=== PATIENT | male | born 1995 | race Caucasian/White ===

== ENCOUNTER 2021-08-15 07:18 | Emergency (ER) | payer MEDICAID ==
[~2021-08-15] VITALS: Ht 175.3 cm; Wt 61.0 kg
[2021-08-15] MEDS ORDERED: ONDANSETRON HCL 4MG/2ML INJ IV ONE (08:15)
[2021-08-15] MEDS ORDERED: NALOXONE HCL 1 MG/ML 2ML VIAL IV ONE (08:15)
[2021-08-15] MEDS ORDERED: ONDANSETRON HCL 4MG/2ML INJ IM ONE (08:30)
[2021-08-15 11:33] VITALS: BP 102/58
== END 2021-08-15 11:35 | disposition home or self-care (01) ==
LOC: ER 07:33 → EDBD 07:33 → ER 11:35
DX: F14.129 Cocaine abuse with intoxication, unspecified (principal); T43.625A Adverse effect of amphetamines, initial encounter; R41.0 Disorientation, unspecified; Y92.9 Unspecified place or not applicable
CPT/HCPCS: 36415; 80320; 96372; 99283; J2405; Z7610; G0480

== ENCOUNTER 2021-09-30 15:50 | Emergency (ER) | payer MEDICAID ==
[~2021-09-30] VITALS: Ht 177.8 cm; Wt 60.0 kg
[2021-09-30 15:55] VITALS: BP 121/68
== END 2021-09-30 20:49 | disposition left against medical advice (07) ==
LOC: ER 15:50
DX: Z53.21 Procedure and treatment not carried out due to patient leaving prior to being seen by health care provider (principal)

== ENCOUNTER 2021-10-15 20:31 | Emergency (ER) | payer MEDICAID ==
[~2021-10-15] VITALS: Ht 172.7 cm; Wt 68.0 kg
[2021-10-15] MEDS ORDERED: VANCOMYCIN 1 G PREMIX 200 ML IV ONE (21:30)
[2021-10-15] MEDS ORDERED: KETOROLAC 30MG/ML VIAL IV STA (21:30)
[2021-10-15] MEDS ORDERED: PIPERACILLIN/TAZ 3.375G PREMIX 50 ML IV ONE (21:30)
[2021-10-15 22:22] LABS: BASOPHILS % 0.4 % (0.0-2.0); EOSINOPHILS % 2.1 % (0.0-5.0); HEMOGLOBIN. 13.4 g/dL (14.0-18.0); MEAN CORPUSCULAR HEMOGLOBIN 29.9 pg (28.0-32.0); MEAN CORPUSCULAR VOLUME 86.9 fL (80.0-94.0); MEAN PLATELET VOLUME 7.6 fl (7.4-10.4); MONOCYTES % 7.2 % (2.0-8.0); NEUTROPHILS % 63.3 % (40.0-76.0); PLATELET 263 x1000/uL (130-400); RED BLOOD CELL COUNT 4.49 mill/uL (4.7-6.1); RED CELL DISTRIBUTION WIDTH 13.6 % (11.6-14.6)
[2021-10-15 22:28] LABS: CHLORIDE 105 mEq/L (98-107)
[2021-10-15 22:30] VITALS: BP 131/72
[2021-10-15 22:32] LABS: ETHANOL BLOOD < 10 mg/dL
== END 2021-10-16 00:07 | disposition home or self-care (01) ==
LOC: ER 20:31
DX: S60.450A Superficial foreign body of right index finger, initial encounter (principal); F15.10 Other stimulant abuse, uncomplicated; W45.8XXA Other foreign body or object entering through skin, initial encounter; Y93.89 Activity, other specified; Y92.018 Other place in single-family (private) house as the place of occurrence of the external cause
CPT/HCPCS: 36415; 73130; 80053; 80320; 83605; 84145; 85025; 87040; 96365; 96368; 96375; 99284; J1885; J2543; G0480

== ENCOUNTER 2023-05-31 21:21 | Emergency (ER) | payer MEDICAID ==
[~2023-05-31] VITALS: Ht 172.7 cm; Wt 70.0 kg
[2023-05-31 21:36] VITALS: O2SAT 97
[2023-05-31] MEDS ORDERED: OLANZAPINE 10 MG/VIAL IM STA (21:40)
[2023-05-31] MEDS ORDERED: LORAZEPAM 2MG/ML CPJ IM STA (21:40)
[2023-05-31] MEDS ORDERED: SODIUM CHLORIDE 0.9% 1,000 ML IV ONE (21:45)
[2023-05-31] MEDS ORDERED: DIPHENHYDRAMINE 50MG/ML VIAL IM ONE (21:45)
[2023-05-31] MEDS ORDERED: FLUORESCEIN SODIUM 1MG/STRIP BOTHEYE ONE (22:30)
[2023-05-31] MEDS ORDERED: SULFACETAMIDE SODIUM 10% OPHTH DROPS 15ML BOTHEYE ONE (22:30)
[2023-05-31] MEDS ORDERED: TETRACAINE 0.5% OPHTH DROPS 4ML BOTHEYE ONE (22:30)
[2023-05-31] MEDS ORDERED: LORAZEPAM 2MG/ML CPJ IV ONE (22:30)
[2023-05-31 22:49] LABS: BASOPHILS % 0.2 % (0.0-2.0); EOSINOPHILS % 0.7 % (0.0-5.0); HEMOGLOBIN. 13.1 g/dL (14.0-18.0); LYMPHOCYTES % 9.1 % (20.0-50.0); MEAN CORPUSCULAR HEMOGLOBIN 29.1 pg (28.0-32.0); MEAN CORPUSCULAR VOLUME 86.8 fL (80.0-94.0); MEAN PLATELET VOLUME 7.3 fl (7.4-10.4); MONOCYTES % 6.2 % (2.0-8.0); NEUTROPHILS % 83.8 % (40.0-76.0); PLATELET 289 x1000/uL (130-400); RED CELL DISTRIBUTION WIDTH 13.7 % (11.6-14.6)
[2023-05-31 22:59] LABS: CHLORIDE 108 mEq/L (98-107); ETHANOL BLOOD < 10 mg/dL (-10)
[2023-05-31] MEDS ORDERED: SULF15DR26 EACHEYE (23:48)
[2023-06-01 06:45] VITALS: BP 117/81; PULSE 68; RESP 18; TEMP 98.1
== END 2023-06-01 10:11 | disposition home or self-care (01) ==
LOC: ER 21:21
DX: R45.6 Violent behavior (principal); T43.655A Adverse effect of methamphetamines, initial encounter; Y92.89 Other specified places as the place of occurrence of the external cause
CPT/HCPCS: 80053; 80307; 80329; 80320; 85025; 84484; 36415; 93005; 96361; 96374; 99285; J2060; J7030; G0480

== ENCOUNTER 2023-12-04 23:45 | Emergency (ER) | payer MEDICAID ==
[~2023-12-04 23:45] MED LIST: IBUP-2029 MT; SULF15DR26 EACHEYE
[2023-12-04 23:50] VITALS: PULSE 105
[2023-12-05 00:33] LABS: BASOPHILS % 0.6 % (0.0-2.0); EOSINOPHILS % 5.8 % (0.0-5.0); HEMATOCRIT. 39.5 % (42.0-52.0); LYMPHOCYTES % 14.6 % (20.0-50.0); MEAN CORPUSCULAR HEMOGLOBIN 29.5 pg (28.0-32.0); MEAN CORPUSCULAR VOLUME 89.3 fL (80.0-94.0); MEAN PLATELET VOLUME 7.7 fl (7.4-10.4); PLATELET 243 x1000/uL (130-400); RED BLOOD CELL COUNT 4.42 mill/uL (4.7-6.1); RED CELL DISTRIBUTION WIDTH 13.8 % (11.6-14.6); WHITE BLOOD COUNT 12.1 x1000/uL (4.5-11.0)
[2023-12-05 00:45] LABS: CALCIUM 8.8 mg/dL (8.7-10.4); CARBON DIOXIDE 28 mEq/L (21-32); CHLORIDE 104 mEq/L (98-107); CREATININE 0.9 mg/dL (0.6-1.3); GLUCOSE 77 mg/dL (70-105); POTASSIUM 3.7 mEq/L (3.5-5.1); SODIUM 136 mEq/L (136-145); UREA NITROGEN BLOOD 15 mg/dL (9-23)
== END 2023-12-05 01:07 | disposition home or self-care (01) ==
LOC: ER 23:53
DX: R53.1 Weakness (principal); F15.10 Other stimulant abuse, uncomplicated
CPT/HCPCS: 36415; 71045; 80048; 85025; 99284

== ENCOUNTER 2023-12-22 17:33 | Emergency (ER) | payer MEDICAID ==
[~2023-12-22] VITALS: Ht 170.2 cm; Wt 66.2 kg
[2023-12-22 17:51] VITALS: BP 114/52; PULSE 78; RESP 16; TEMP 98.2; O2SAT 99
[2023-12-22] MEDS ORDERED: IBUPROFEN 600MG TABLET PO ONE (20:30)
[2023-12-23] MEDS ORDERED: IBUP-2030 PO (05:41)
[2023-12-23] MEDS ORDERED: AMOX1TAB16 PO (05:41)
== END 2023-12-22 23:16 | disposition left against medical advice (07) ==
LOC: ER 17:33
DX: R51.9 Headache, unspecified (principal); Z53.21 Procedure and treatment not carried out due to patient leaving prior to being seen by health care provider
CPT/HCPCS: 99281

== ENCOUNTER 2023-12-23 05:29 | Emergency (ER) | payer MEDICAID ==
[~2023-12-23] VITALS: Ht 172.7 cm; Wt 70.0 kg
[2023-12-23 05:36] VITALS: TEMP 97.8; O2SAT 99
[2023-12-23] MEDS ORDERED: AMOX1TAB16 PO (05:41)
[2023-12-23] MEDS ORDERED: IBUP-2030 PO (05:41)
[2023-12-23] MEDS ORDERED: IBUPROFEN 800MG TABLET PO ONE (05:45)
[2023-12-23 06:00] VITALS: BP 123/82; PULSE 75; RESP 16
[2023-12-23] MEDS ORDERED: IBUPROFEN 400MG TABLET PO NR (06:00)
== END 2023-12-23 06:10 | disposition home or self-care (01) ==
LOC: ER 05:29
DX: K04.7 Periapical abscess without sinus (principal); F15.10 Other stimulant abuse, uncomplicated; J45.909 Unspecified asthma, uncomplicated
CPT/HCPCS: 99283